=== PATIENT | female | born 1955 | race Caucasian/White ===

== ENCOUNTER → 2021-04-17 | Outpatient (CLI) | payer OTHER ==
--- NOTE | 2021-04-17 13:05 | Diagnostic Imaging Report ---
US RENAL ART DOPPLER [facility] COMP Technique: Grayscale, color Doppler and spectral Doppler imaging of bilateral kidneys and renal arteries was performed. Indication: Hypertension. Comparison: None available. Findings: Right side: The right kidney measures 11 cm in length and has normal cortical thickness and echogenicity. There is no hydronephrosis. Doppler imaging shows the arcuate arteries to be patent with expected low resistant waveforms. Main renal artery has low resistant waveforms in maximal peak systolic velocity of 147 cm at its proximal aspect. The renal artery to aortic ratio is 1.1, which is normal. Left side: The left kidney measures 11.7 cm in length and has normal cortical thickness and echogenicity. No hydronephrosis or mass lesion. Arcuate arteries are patent with low resistant waveforms. The main left renal artery has low resistant arterial waveforms with maximal peak slight velocity of 95 cm/s at its proximal aspect. This gives a renal artery to aortic ratio of 0.7, which is normal. Aorta has maximal peak systolic velocity of 137 cm/s. Urinary bladder is unremarkable. Impression: 1. No sonographic features of renal artery stenosis. 2. No hydronephrosis or renal atrophy. Dictated by: Dictated on workstation # [id number]
== END ==
LOC: RAD 09:15
PROVIDERS: ATTEND Nurse Practitioner Family
DX: I12.9 Hypertensive chronic kidney disease with stage 1 through stage 4 chronic kidney disease, or unspecified chronic kidney disease (principal); N18.30 Chronic kidney disease, stage 3 unspecified
CPT/HCPCS: 76770; 93975

== ENCOUNTER → 2022-02-15 | Outpatient (CLI) | payer OTHER, MEDICARE | LOC: CARD 09:12 | PROVIDERS: ATTEND Internal Medicine Cardiovascular Disease | DX: I35.1 Nonrheumatic aortic (valve) insufficiency (principal); I45.81 Long QT syndrome; I51.7 Cardiomegaly | CPT/HCPCS: 93306 ==

== ENCOUNTER → 2022-02-19 | Outpatient (CLI) | payer MEDICARE, OTHER ==
--- NOTE | 2022-02-19 17:31 | Diagnostic Imaging Report ---
INDICATION: Postmenopausal screening for osteoporosis. COMPARISON: None. FINDINGS: AP Spine L1-L4: [BMD (g/cm2): 1.243] [T-Score: 0.4] [Z-Score: 2.0] [BMD Previous: na] [BMD % Change: na] LT Hip Neck: [BMD (g/cm2): 0.679] [T-Score: -2.6] [Z-Score: -1.1] LT Hip Total: [BMD (g/cm2):0.686] [T-Score:-2.6] [Z-Score: -1.3] [BMD Previous: na] [BMD % Change: na] RT Hip Neck: [BMD (g/cm2):0.714] [T-Score:-2.3] [Z-Score:-0.8] RT Hip Total: [BMD (g/cm2):0.764] [T-score:-1.9] [Z-Score:-0.7] [BMD Previous:na] [BMD % Change:na] *Indicates significant change from prior examination based on 95% confidence level. World Health Organization criteria for BMD interpretation classify patients as Normal (T-score at or above -1.0), Osteopenic (T-score between -1.0 and -2.5) or Osteoporotic (T-score at or below -2.5). LIMITATIONS AND MODIFICATION: None. FRACTURE RISK (FRAX SCORE): The ten year probability of (%): Major Osteoporotic Fracture: [13.6] Hip Fracture: [3.1] IMPRESSION: 1. Osteopenia (Low bone mass). 2. Baseline examination. 3. See below National Osteoporosis Foundation guidelines on when to potentially initiate pharmacologic therapy. Based on the National Osteoporosis Foundation Guidelines, pharmacologic treatment should be initiated in any of the following, unless clinical conditions suggest otherwise: * Any patient with prior fragility fracture of the hip or vertebrae. A spine fracture indicates 5X risk for subsequent spine fracture and 2X risk for subsequent hip fracture. * Osteoporosis (T-score <-2.5). * Postmenopausal women and men age 50 and older with low bone mass/osteopenia (T-score between -1.0 and -2.5) by DXA and 10-year major osteoporotic fracture greater than 20% or a 10-year probability of hip fracture greater than 3%. These fracture risks are supplied above in the FRAX score, if applicable. * Clinician judgement and/or patient preferences may indicate treatment for people with 10-year fracture probabilities above or below these levels. Dictated by: Dictated on workstation # [id number]
== END ==
LOC: RAD 14:30
PROVIDERS: ATTEND Nurse Practitioner Family
DX: Z13.820 Encounter for screening for osteoporosis (principal); M85.88 Other specified disorders of bone density and structure, other site; N18.4 Chronic kidney disease, stage 4 (severe); Z78.0 Asymptomatic menopausal state
CPT/HCPCS: 77080

== ENCOUNTER 2022-04-19 09:15 | Outpatient (RCR) | payer MEDICARE, OTHER ==
[2022-04-10] MEDS: IRON SUCROSE 200 MG/10 ML (VENOFER) VIAL IV SCH (10:20)
[2022-04-10 11:15] VITALS: BP 105/66
[2022-04-12 09:34] VITALS: BP 117/56
[2022-04-12] MEDS: IRON SUCROSE 200 MG/10 ML (VENOFER) VIAL IV SCH (10:07)
[2022-04-15 09:35] VITALS: BP 96/61
[2022-04-15] MEDS: IRON SUCROSE 200 MG/10 ML (VENOFER) VIAL IV SCH (09:43)
[2022-04-17] MEDS: IRON SUCROSE 200 MG/10 ML (VENOFER) VIAL IV SCH (09:37)
[2022-04-17 10:15] VITALS: BP 118/51
[~2022-04-19] VITALS: Ht 162 cm; Wt 63.0 kg
[2022-04-19] MEDS: IRON SUCROSE 200 MG/10 ML (VENOFER) VIAL IV SCH (09:50)
[2022-04-19 10:24] VITALS: BP 92/45
== END 2022-04-19 10:35 | disposition home or self-care (01) ==
LOC: SDC 09:15
PROVIDERS: ATTEND Internal Medicine Nephrology
DX: D50.9 Iron deficiency anemia, unspecified (principal); I35.0 Nonrheumatic aortic (valve) stenosis
CPT/HCPCS: 96365

== ENCOUNTER → 2022-08-14 | Outpatient (CLI) | payer MEDICARE, OTHER ==
--- NOTE | 2022-08-14 16:13 | Diagnostic Imaging Report ---
INDICATION: Left foot pain AP, oblique, and lateral views of the left foot are obtained. There is generalized demineralization. There is a subacute fracture of the 2nd metatarsal distally, with some callus formation. There are fractures of the 3rd and 4th metatarsals distally, without callus formations, these findings are of uncertain age and may be subacute or acute. There is no other bony abnormality. IMPRESSION: There are fractures of the 2nd, 3rd, and 4th metatarsals distally, as described above. These fractures are of uncertain age although the 2nd metatarsal fracture appears to be least subacute with some callus formation. Dictated by: Dictated on workstation # [id number]
== END ==
LOC: RAD 10:55
PROVIDERS: ATTEND Nurse Practitioner Family
DX: S92.322A Displaced fracture of second metatarsal bone, left foot, initial encounter for closed fracture (principal); S92.332A Displaced fracture of third metatarsal bone, left foot, initial encounter for closed fracture; S92.342A Displaced fracture of fourth metatarsal bone, left foot, initial encounter for closed fracture; X58.XXXA Exposure to other specified factors, initial encounter
CPT/HCPCS: 73630

== ENCOUNTER → 2022-12-27 | Outpatient (CLI) | payer MEDICARE, OTHER ==
--- NOTE | 2022-12-27 14:27 | Diagnostic Imaging Report ---
INDICATION: Pain, fall COMPARISON: None available TECHNIQUE: 2 radiographs of the right tibia and fibula dated 12/27/2022. FINDINGS: A 5 mm ossific density is noted overlying the anterior aspect of the knee joint line. Moderate sized superior and tiny inferior patellar enthesophytes. Mild sclerosis is noted involving the medial and posterior aspect of the proximal tibia. No additional fracture. No dislocation. Small posterior calcaneal enthesophyte. IMPRESSION: Small region of sclerosis involving the proximal tibia medially, which could relate to a healing nondisplaced fracture. Recommend correlation for focal pain at this location. Scattered degenerative changes including a suspected small loose body involving the anterior aspect of the knee joint. Dictated by: Dictated on workstation # [id number]
== END ==
LOC: RAD 10:49
PROVIDERS: ATTEND Nurse Practitioner Family
DX: M17.11 Unilateral primary osteoarthritis, right knee (principal)
CPT/HCPCS: 73590